=== PATIENT | male | born 1985 | race Caucasian/White ===

== ENCOUNTER 2017-10-16 09:31 | Emergency (ER) | payer MEDICAID ==
[~2017-10-16] VITALS: Ht 185.4 cm; Wt 95.8 kg
[~2017-10-16 09:31] MED LIST: ARIP2TAB5 PO; CLIN-26 PO; DULO-31 PO; OMEP-84 PO; PRED20TA PO; ZOF4T PO
[2017-10-16 09:47] VITALS: BP 139/83
== END 2017-10-16 10:37 | disposition home or self-care (01) ==
LOC: ER 09:31
DX: R07.89 Other chest pain (principal); G89.29 Other chronic pain; F17.210 Nicotine dependence, cigarettes, uncomplicated; F12.10 Cannabis abuse, uncomplicated; Z90.49 Acquired absence of other specified parts of digestive tract; Z56.0 Unemployment, unspecified; Z79.899 Other long term (current) drug therapy
CPT/HCPCS: 71045; 99284

== ENCOUNTER 2017-12-13 20:41 | Emergency (ER) | payer MEDICAID ==
[~2017-12-13] VITALS: Ht 185.4 cm; Wt 99.0 kg
[2017-12-13 20:47] VITALS: BP 108/72
[2017-12-13] MEDS ORDERED: IBUP-1984 PO (21:37)
[2017-12-13] MEDS ORDERED: HYDR-565 PO (21:50)
== END 2017-12-13 21:51 | disposition home or self-care (01) ==
LOC: ER 20:42
DX: S93.401A Sprain of unspecified ligament of right ankle, initial encounter (principal); S90.31XA Contusion of right foot, initial encounter; G89.29 Other chronic pain; F12.10 Cannabis abuse, uncomplicated; Z56.0 Unemployment, unspecified; Z90.49 Acquired absence of other specified parts of digestive tract; Z79.899 Other long term (current) drug therapy; W18.39XA Other fall on same level, initial encounter; Y93.64 Activity, baseball; Y92.89 Other specified places as the place of occurrence of the external cause; Y99.8 Other external cause status
CPT/HCPCS: 73610; 73630; 99284; A6449

== ENCOUNTER 2019-09-27 13:33 | Emergency (ER) | payer MEDICAID ==
[~2019-09-27] VITALS: Ht 185.4 cm; Wt 79.0 kg
[2019-09-27 14:42] VITALS: BP 124/75
[2019-09-30] MEDS ORDERED: CYCL-1 PO (12:25)
== END 2019-09-27 14:44 | disposition home or self-care (01) ==
LOC: ER 13:33
DX: F15.10 Other stimulant abuse, uncomplicated (principal); F11.10 Opioid abuse, uncomplicated; G89.29 Other chronic pain; F41.9 Anxiety disorder, unspecified; F32.9 Major depressive disorder, single episode, unspecified; F17.200 Nicotine dependence, unspecified, uncomplicated; F12.90 Cannabis use, unspecified, uncomplicated; Z56.0 Unemployment, unspecified; Z90.49 Acquired absence of other specified parts of digestive tract; Z87.11 Personal history of peptic ulcer disease; Z79.899 Other long term (current) drug therapy
CPT/HCPCS: 99281

== ENCOUNTER 2020-01-19 16:07 | Emergency (ER) | payer MEDICAID ==
[~2020-01-19] VITALS: Ht 185.4 cm; Wt 78.0 kg
[~2020-01-19 16:07] MED LIST changes: +CYCL-1 PO
[2020-01-19 16:15] VITALS: BP 120/75
== END 2020-01-19 16:32 | disposition home or self-care (01) ==
LOC: ER 16:08
DX: F11.10 Opioid abuse, uncomplicated (principal); G89.29 Other chronic pain; F41.9 Anxiety disorder, unspecified; F32.9 Major depressive disorder, single episode, unspecified; F12.90 Cannabis use, unspecified, uncomplicated; F15.90 Other stimulant use, unspecified, uncomplicated; Z90.49 Acquired absence of other specified parts of digestive tract; Z98.890 Other specified postprocedural states; Z56.0 Unemployment, unspecified; Z72.89 Other problems related to lifestyle; Z79.899 Other long term (current) drug therapy
CPT/HCPCS: 99281

== ENCOUNTER 2020-03-08 05:03 | Emergency (ER) | payer MEDICAID ==
[~2020-03-08] VITALS: Ht 185.4 cm; Wt 84.1 kg
[2020-03-08 05:10] VITALS: BP 123/68
[2020-03-08] MEDS ORDERED: IBUP-1984 PO (05:47)
[2020-03-08] MEDS ORDERED: ketorolac trometh inj. 60 MG/2 ML VIAL IM ONE (05:50)
== END 2020-03-08 06:11 | disposition home or self-care (01) ==
LOC: ER 05:04
DX: R07.81 Pleurodynia (principal); G89.29 Other chronic pain; F41.9 Anxiety disorder, unspecified; F32.9 Major depressive disorder, single episode, unspecified; F12.90 Cannabis use, unspecified, uncomplicated; Z90.49 Acquired absence of other specified parts of digestive tract; Z72.89 Other problems related to lifestyle; Z79.899 Other long term (current) drug therapy
CPT/HCPCS: 71046; 96372; 99283; J1885

== ENCOUNTER 2021-01-18 17:37 | Emergency (ER) | payer MEDICAID ==
[~2021-01-18] VITALS: Ht 185.4 cm; Wt 86.5 kg
[2021-01-18 17:38] VITALS: BP 118/70
[2021-01-18] MEDS ORDERED: CEPH250T PO (18:21)
[2021-01-18] MEDS ORDERED: TETanus/Pertussis (Acell)/Diphther VAC/PF (Tdap-Adult) 0.5ml syringe IMVAC ONE (18:25)
[2021-01-18] MEDS ORDERED: bacitracin 15gm ointment TP ONE (18:25)
== END 2021-01-18 18:42 | disposition home or self-care (01) ==
LOC: ER 17:39
DX: S61.211A Laceration without foreign body of left index finger without damage to nail, initial encounter (principal); G89.29 Other chronic pain; F41.9 Anxiety disorder, unspecified; F32.9 Major depressive disorder, single episode, unspecified; Z90.49 Acquired absence of other specified parts of digestive tract; F12.90 Cannabis use, unspecified, uncomplicated; Z72.89 Other problems related to lifestyle; Z98.890 Other specified postprocedural states; Z79.899 Other long term (current) drug therapy; W27.8XXA Contact with other nonpowered hand tool, initial encounter; Y93.89 Activity, other specified; Y92.89 Other specified places as the place of occurrence of the external cause; Y99.8 Other external cause status
CPT/HCPCS: 90471; 90715; 99283

== ENCOUNTER 2023-01-21 08:46 | Emergency (ER) | payer MEDICAID ==
[~2023-01-21] VITALS: Ht 185.4 cm; Wt 135.8 kg
[2023-01-21 08:47] VITALS: BP 130/79
[2023-01-21] MEDS ORDERED: HYDR-3965 PO (09:19)
[2023-01-21] MEDS ORDERED: CLIN-97 PO (09:19)
== END 2023-01-21 09:28 | disposition home or self-care (01) ==
LOC: ER 08:46
DX: K04.7 Periapical abscess without sinus (principal); G89.29 Other chronic pain; F41.9 Anxiety disorder, unspecified; F32.9 Major depressive disorder, single episode, unspecified; F12.90 Cannabis use, unspecified, uncomplicated; Z90.49 Acquired absence of other specified parts of digestive tract; Z72.89 Other problems related to lifestyle; Z98.890 Other specified postprocedural states; Z79.899 Other long term (current) drug therapy
CPT/HCPCS: 99283

== ENCOUNTER 2024-02-14 01:41 | Emergency (ER) | payer MEDICAID ==
[~2024-02-14] VITALS: Ht 185.4 cm; Wt 135.0 kg
[~2024-02-14 01:41] MED LIST changes: +CLIN-97 PO
[2024-02-14] MEDS ORDERED: ondansetron 4mg rapidly disintigrating tab PO ONE (01:45)
[2024-02-14] MEDS ORDERED: buprenorphine/naloxone 8MG-2MG SUBlingual film SL ONE (01:45)
[2024-02-14] MEDS: normal saline 1000ml 1,000 ML IV ONE (01:59)
[2024-02-14 02:06] LABS: BASOPHILS # (AUTO) 0.1 X10'3 (0-0.2); EOSINOPHILS % (AUTO) 0.4 % (0-6); HEMATOCRIT 42.6 % (42.0-52.0); HEMOGLOBIN 15.8 g/dl (14.0-17.9); LYMPHOCYTES # (AUTO) 1.5 X10'3 (1.1-4.8); LYMPHOCYTES % (AUTO) 13.8 % (21-51); MEAN CORPUSCULAR HEMOGLOBIN 31.4 PG (27.0-31.0); MEAN CORPUSCULAR HGB CONC 37.1 g/dL (33.0-36.5); MEAN CORPUSCULAR VOLUME 84.7 FL (78-98); MONOCYTES # (AUTO) 0.9 X10'3 (0-0.9); MONOCYTES % (AUTO) 8.7 % (2-12); NEUTROPHILS # (AUTO) 8.2 X10'3 (1.8-7.7); NEUTROPHILS % (AUTO) 76.1 % (42-75); PLATELET COUNT 553 X10'3 (140-440); RED BLOOD COUNT 5.03 X10'6 (4.70-6.10); RED CELL DISTRIBUTION WIDTH 13.1 % (11.5-14.5); WHITE BLOOD COUNT 10.7 X10'3 (4.5-11.0)
[2024-02-14] MEDS: ondansetron/PF 4mg/2ml inj IV ONE (02:18)
[2024-02-14 02:26] LABS: ALANINE AMINOTRANSFERASE 33 U/L (12-78); ALBUMIN 3.8 G/DL (3.4-5.0); ALBUMIN/GLOBULIN RATIO 0.9 (1.1-1.5); ALKALINE PHOSPHATASE 163 IU/L (46-116); ANION GAP 11 (8-16); ASPARTATE AMINO TRANSFERASE 29 U/L (10-37); BILIRUBIN,TOTAL 2.2 MG/DL (0.1-1.0); BLOOD UREA NITROGEN 17 MG/DL (7-18); BUN/CREATININE RATIO 17.2 (10.0-20.0); CHLORIDE 102 MMOL/L (99-107); CREATININE 0.99 MG/DL (0.60-1.10); GLUCOSE 97 MG/DL (70-104); POTASSIUM 3.6 MMOL/L (3.5-5.1); SODIUM 138 MMOL/L (135-145); TOTAL CARBON DIOXIDE 25.5 MMOL/L (24-32); TOTAL PROTEIN 8.2 G/DL (6.4-8.2); eCRCL 117 ML/MIN; eGFR 86 ML/MIN
[2024-02-14 02:30] LABS: ETHANOL < 10 MG/DL (<10); LIPASE 25 U/L (16-77)
[2024-02-14] MEDS ORDERED: ketorolac trometh. 30mg/ml inj. IV ONE (02:30)
[2024-02-14] MEDS: ketorolac tromethamine 15mg/ml inj. IV ONE (03:20)
[2024-02-14] MEDS: proCHLORperazine 10 MG/2 ml inj IV ONE (03:23)
[2024-02-14] MEDS ORDERED: ONDA8TAB13 PO (04:43)
[2024-02-14 05:14] VITALS: BP 127/89; PULSE 90; RESP 20; TEMP 99.2; O2SAT 97
== END 2024-02-14 05:00 | disposition home or self-care (01) ==
LOC: ER 01:42
DX: R11.2 Nausea with vomiting, unspecified (principal); G89.29 Other chronic pain; M54.9 Dorsalgia, unspecified; F32.A Depression, unspecified; F41.9 Anxiety disorder, unspecified; Z90.49 Acquired absence of other specified parts of digestive tract; Z72.89 Other problems related to lifestyle; F12.90 Cannabis use, unspecified, uncomplicated; Z79.899 Other long term (current) drug therapy; Z79.2 Long term (current) use of antibiotics; Z79.52 Long term (current) use of systemic steroids
CPT/HCPCS: 36415; 80053; 80320; 83690; 84145; 84484; 85025; 93005; 96374; 96375; 99285; J0780; J2405; J7030

== ENCOUNTER 2025-04-12 22:32 | Emergency (ER) | payer MEDICAID ==
[~2025-04-12] VITALS: Ht 185.4 cm; Wt 98.6 kg
[~2025-04-12 22:32] MED LIST changes: +CLIN-224 PO; -CLIN-97 PO; +ONDA-245 PO
--- NOTE | 2025-04-12 23:19 | Physician Documentation ---
History of Present Illness ~ Chief Complaint: Back Pain Stated Complaint: BACK PAIN Time Seen by MD: 23:07 Primary Medical Doctor: EDUIN ROYAL Mode of Arrival: POV HPI Patient presents to the emergency room with back pain and left leg symptoms. Onset of symptoms this morning. He can not think of any injury that he may have sustained that could have caused this from the day prior although he does state that he was loading a bunch of tables into a trash can. Patient's history is significant for partial diskectomy many years ago. He states his toes in his left feel numb on digits two and three and at times he has some numbness but none currently. He is able to walk with a coordinated gait. He states that although his back was hurting his left leg gave out this evening prompting him to fall down a flight of stairs. He denies any head strike or significant injury sustained from the fall that has still concerned about his leg and back. He denies any bladder or bowel incontinence. Reports taking ibuprofen and Tylenol prior to coming to the emergency room Medication Reconciliation Allergies: Coded Allergies: No Known Allergies (Unverified , 02/24/14) Scheduled Aripiprazole (Abilify*), 2 MG PO DAILY, (Reported) Clindamycin HCL* (Clindamycin HCL*), 1 CAP PO QID Clindamycin HCl (Clindamycin HCl), 450 CAP PO TID Cyclobenzaprine* (Cyclobenzaprine*), 1 TAB PO Q8H Duloxetine Hcl* (Cymbalta*), 60 MG PO DAILY, (Reported) Omeprazole* (Prilosec*), 40 MG PO BID Ondansetron 8mg ODT (Ondansetron Odt), 1 TAB PO Q6H Ondansetron ODT* (Zofran ODT*), 4 MG PO Q6H Ondansetron ODT* (Zofran ODT*), 4 MG PO Q6H Prednisone* (Prednisone*), 40 MG PO DAILY Prednisone* (Prednisone*), 1 TAB PO DAILY Scheduled PRN Cyclobenzaprine* (Cyclobenzaprine*), 1 TABLET PO Q8H PRN for muscle spasms Past Medical History Past Medical History: GI Bleed, Peptic Ulcer Disease, Chronic Back Pain, Anxiety, Depression Past Surgical History: appendectomy, cholecystectomy, other Other Past Surgical History: splenectomy Other Past Family History: Spherocytosis Alcohol Use: Occasionally Drug Use: marijuana Lives with: Mother, S/O Lives In: Home Occupation: employed Review of Systems ROS All review of systems negative except as per HPI Physical Exam Physical Exam Vital Signs: Temperature: 98.6, Heart Rate: 126, Respiratory Rate: 16, BP: 152/90, Pulse Oximetry: 98, Weight: 98.600 Oxygen Flow Rate: 0 Physical Exam General: Patient is awake, alert, oriented x4 in no acute distress Head: Normocephalic and atraumatic. Eyes: Conjunctival normal. EOMI. PERRL. ENT: Mucous membranes moist. Neck: Supple, trachea is midline. Chest: Clear to auscultation bilaterally without rales, rhonchi, or wheezes. There is no accessory muscle use or retractions. Cardiac: Tachycardic and regular without murmurs, gallops, or rubs. Extremities: Normal strength. Normal range of motion. No deformities or edema. Back: No midline spinal or CVA tenderness. Mild tenderness to palpation to bilateral SI joints. Prior surgical scar noted. Neuro: Cranial nerves II-XII grossly intact. No focal neuro deficits. Patient ambulating without difficulty. Progress Results/Orders Results/Orders Vital Signs 04/12/25 04/12/25 04/12/25 04/12/25 22:40 22:48 23:43 23:48 Temp 98.6 Pulse 126 87 Resp 16 14 15 B/P (MAP) 152/90 133/85 (101) Pulse Ox 98 99 O2 Flow Rate 0 04/13/25 04/13/25 04/13/25 01:54 06:23 06:23 Temp 98.6 Pulse 79 73 Resp 15 16 16 B/P (MAP) 127/78 (94) 127/83 (98) Pulse Ox 99 100 O2 Flow Rate 0 Medical Decision Making Findings Patient presents to the emergency room with back pain and lower extremity s ymptoms as per HPI. Differentials include but are not limited to radiculopathy, cauda equina, musculoskeletal pain. Given the concern for possible cauda equina MRI performed and we will be followed up by oncoming physician. He denies any bladder and bowel incontinence Care the patient was transferred to de from Dr. Burgos at 6:00 a.m.. MRI lumbar spine, indication: Left lower extremity weakness Impression: 1. Postsurgical changes L4-Multilevel degenerative disease. Mild central canal stenosis L1-2. Left lateral recess stenosis L5-SNeural foraminal stenosis as above. Patient states that he had an episode yesterday where his left leg just went . This was brief. Patient noticed some intermittent weakness this morning which prompted his emergency department visit. Patient is denying any bowel incontinence, urinary incontinence or urinary retention. On physical exam patient does have some dorsiflexion and plantar flexion weakness 4/5 compared to 5/5 on the right. Patient's symptoms may be secondary to the L5 foraminal stenosis noted above. Patient has seen Dr. Maldonado in the past approximately [address] Maldonado office was called to consult Dr. Maldonado. However he is currently in route back to [place] on a flight. Dr. Maldonado does self referrals. The office will be calling the patient to set up an appointment. The patient is instructed to call the office if he has not heard from them by noon tomorrow. He is instructed to return to the ER if symptoms worsen or if he develops any of the above described symptoms such as bowel incontinence or paresthesia around the perineum. Patient is stable for discharge. PATIENT REFUSED RECTAL EXAM. PATIENT IS BEING GIVEN A DISC WITH HIS MRI. PATIENT WILL ALSO BE GIVEN THE INTERPRETATION. HE IS GOING TO TAKE IT TO DR. MALDONADO'S OFFICE AFTER HE IS DISCHARGED AND SET UP AN APPOINTMENT. Departure Time of Disposition: 10:16 Disposition: 01 HOME / SELF CARE / HOMELESS Impression: Primary Impression: Low back pain Discharge Instructions: Acute Back Pain, Adult Additional Instructions: RETURN TO THE EMERGENCY DEPARTMENT IF YOU DEVELOP ANY WORSENING WEAKNESS IN THE LEFT LOWER EXTREMITY. RETURN TO THE ER IF YOU DEVELOP ANY BOWEL INCONTINENCE, URINARY INCONTINENCE, URINARY RETENTION OR NUMBNESS AND PARESTHESIAS AROUND THE PERINEUM. CALLED DR. MALDONADO'S OFFICE IF YOU HAVE NOT HEARD FROM HIS OFFICE BY TOMORROW NOON. Departure Forms: Excuse form Work or School Excused From: Work Excuse beginning now through the following date: Apr 12, 2025 May Return but still avoid physical Activity from now until: Apr 12, 2025 May Return to full physical activity as of: Apr 14, 2025 Prescriptions Prednisone* (Prednisone*) 20 Mg Tablet 1 TAB PO DAILY for 5 Days, #5 TAB Prov: MICHEAL BURGOS MD 04/13/25 Cyclobenzaprine* (Cyclobenzaprine*) 10 Mg Tablet 1 TAB PO Q8H for muscle spasms for 10 Days, #30 TAB 0 Refills Prov: MICHEAL BURGOS MD 04/13/25 Education Educated: Patient Educated regarding: diagnosis, treatment Signature Scribe Signature: No scribe Attestation: The note accurately reflects work and decisions made by me.Micheal Burgos MD 04/13/25 05:58 MICHEAL BURGOS MD Apr 12, 2025 23:19 CÉSAR SIGALA MD Apr 13, 2025 10:17
[2025-04-12] MEDS: orphenadrine citrate 60mg/2ml inj. IM ONE (23:42)
[2025-04-12] MEDS: oxyCODONE IR 5mg (immed. release) tablet PO ONE (23:43)
[2025-04-12] MEDS: ondansetron 4mg rapidly disintigrating tab PO ONE (23:47)
[2025-04-13] MEDS ORDERED: CYCL-1 PO (06:01)
[2025-04-13] MEDS ORDERED: PRED20TA PO (06:01)
[2025-04-13 08:07] LABS: LEUKOCYTE ESTERASE ,URINE NEGATIVE (Neg); NITRITES, URINE NEGATIVE (Neg); OCCULT BLOOD,URINE NEGATIVE (Neg)
[2025-04-13 08:17] LABS: UA COLLECTION TYPE CLN CATCH MIDSTREAM; URINE AMPHETAMINE SCREEN POSITIVE (Neg); URINE BARBITUATE SCREEN NEGATIVE (Neg); URINE BENZODIAZEPINES SCREEN NEGATIVE (Neg); URINE CANNABINOID SCREEN POSITIVE (Neg); URINE COCAINE SCREEN NEGATIVE (Neg); URINE METHADONE SCREEN NEGATIVE (Neg); URINE OPIATE SCREEN POSITIVE (Neg); URINE PHENCYCLIDINE SCREEN NEGATIVE (Neg)
--- NOTE | 2025-04-13 08:58 | RADIOLOGY REPORT ---
PROCEDURE: MR MRI LUMBAR SPINE INDICATION: LLE numbness Exam Date: 04/13/2025 08:00 AM COMPARISON: None TECHNIQUE: MRI lumbar spine without intravenous contrast. FINDINGS: The lumbar alignment is intact. Postsurgical changes L4-5. There are degenerative endplate changes including modic endplate changes with anterior and lateral osteophytes throughout the lumbar spine. T he visualized distal spinal cord and conus medullaris are within normal limits. The conus medullaris appears to terminate within normal limits. The visualized retroperitoneal and paraspinal soft tissu es are unremarkable. The following axial levels are detailed below: T12-L1: There is a mild circumferential disc bulge. No significant central canal or neuroforaminal s tenosis. L1-L2: There is a moderate circumferential disc bulge complicated by facet arthropathy associated w ith mild to moderate right neuroforaminal stenosis. Central canal measures 9 mm. L2-L3: Unremarkable. L3-L4: Unremarkable. L4-L5: There is a moderate circumferential disc bulge complicated by facet arthropathy associated w ith mild to moderate bilateral neuroforaminal stenosis. No significant central canal stenosis. L5-S1: There is a moderate circumferential disc bulge with a left paracentral component complicated by facet arthropathy associated with left lateral recess stenosis as well as mild to moderate bilater al neuroforaminal stenosis. No significant central canal stenosis. IMPRESSION: 1. Postsurgical changes L4-Multilevel degenerative disease. Mild central canal stenosis L1-2. Left l ateral recess stenosis L5-SNeural foraminal stenosis as above. HS:Y
[2025-04-13 11:05] VITALS: BP 138/78; PULSE 78; RESP 18; TEMP 98.6; O2SAT 99
== END 2025-04-13 11:09 | disposition home or self-care (01) ==
LOC: ER 22:32
DX: M54.50 Low back pain, unspecified (principal); F41.9 Anxiety disorder, unspecified; F32.A Depression, unspecified; F12.90 Cannabis use, unspecified, uncomplicated; Z90.49 Acquired absence of other specified parts of digestive tract; W10.9XXA Fall (on) (from) unspecified stairs and steps, initial encounter; Y93.89 Activity, other specified; Y92.89 Other specified places as the place of occurrence of the external cause; Y99.8 Other external cause status
CPT/HCPCS: 72148; 80305; 81003; 96372; 99285; J2360